=== PATIENT | male | born 1985 | race Two or more races ===

== ENCOUNTER 2017-01-11 08:32 | Emergency (ER) | payer OTHER ==
[2017-01-11] MEDS ORDERED: PREDNISONE 20 MG TABLET ONE (09:02)
[2017-01-11] MEDS ORDERED: IBUPROFEN 800 MG TABLET ONE (09:02)
--- NOTE | 2017-01-11 09:54 | RAD ---
Exam: 4 view left knee COMPARISON: None INDICATION: Left knee pain for one year, with increased anterior pain over the last 2 months. No known injury. Findings: AP, lateral and bilateral AP oblique views of left knee were obtained. There is no joint effusion. Alignment is normal. No fracture or periosteal reaction is identified. Joint spaces maintained. IMPRESSION: Negative left knee.
== END 2017-01-11 10:18 | disposition home or self-care (01) ==
LOC: ED 08:32
DX: M25.562 Pain in left knee (principal); X50.1XXD Overexertion from prolonged static or awkward postures, subsequent encounter; Y93.H3 Activity, building and construction; Y92.69 Other specified industrial and construction area as the place of occurrence of the external cause; Y99.0 Civilian activity done for income or pay
CPT/HCPCS: 73564; 99283 ×2; A9270; J7512